=== PATIENT | male | born 1990 | race Caucasian/White ===

== ENCOUNTER → 2016-06-01 | Outpatient (CLI) | payer OTHER ==
[~2016-06-01] MED LIST: EPIN0.3P2 IM
--- NOTE | 2016-06-01 17:58 | Diagnostic Imaging Report ---
Three views of the lumbar spine. INDICATION: Back pain. FINDINGS: The lumbar spine has satisfactory alignment. The vertebral body heights and disc heights are preserved. The SI joints appear symmetric. No significant degenerative changes or osteophyte formation is noted. The paravertebral soft tissues appear unremarkable. IMPRESSION: Unremarkable exam. Dictated by: Dictated on workstation # [id number]
--- NOTE | 2016-06-01 18:07 | Diagnostic Imaging Report ---
Three views of the cervical spine. INDICATION: Neck pain. FINDINGS: There is straightening of the lordotic curvature in the upper cervical spine, likely positional. The vertebral body heights are preserved. Disc heights are also preserved. There is minimal early anterior and posterior osteophyte formation noted at C6/C7 level. The lateral masses of C1 and C2 have normal alignment. The prevertebral soft tissues appear unremarkable. IMPRESSION: Suggestion of minimal early degenerative osteophytes at C6/C7 level. MRI could be considered to evaluate potential effect on the spinal canal. Dictated by: Dictated on workstation # [id number]
== END ==
LOC: RAD 13:22
PROVIDERS: ATTEND Chiropractor
DX: M47.812 Spondylosis without myelopathy or radiculopathy, cervical region (principal); M54.6 Pain in thoracic spine; M54.5 Low back pain
CPT/HCPCS: 72040; 72100

== ENCOUNTER → 2017-08-09 | Outpatient (CLI) | payer OTHER ==
--- NOTE | 2017-08-09 11:21 | Diagnostic Imaging Report ---
PROCEDURE: US Gallbladder. TECHNIQUE: Multiple real-time grayscale images were obtained over the right upper quadrant in various projections. INDICATION: Right upper quadrant pain. COMPARISON: None. FINDINGS: The liver appears unremarkable. There is no focal hepatic mass. The common bile duct is not well seen, however, no gross biliary dilatation is seen. Doppler imaging demonstrates normal hepatopetal flow in the main portal vein. Gallbladder appears unremarkable. The pancreas is not well demonstrated. The right kidney measures 11.9 cm in length and appears normal. There is no ascites or sonographic Palomino's sign. IMPRESSION: No acute abnormality is seen. Limited visualization of common bile duct and pancreas. Dictated by: Dictated on workstation # [id number]
== END ==
LOC: RAD 09:14
PROVIDERS: ATTEND Surgery
DX: R10.11 Right upper quadrant pain (principal)
CPT/HCPCS: 76705

== ENCOUNTER 2017-10-11 05:39 | Outpatient (CLI) | payer OTHER ==
[~2017-10-11] VITALS: Ht 188 cm; Wt 86.2 kg
[2017-10-19] MEDS ORDERED: ACHD5005 PO (09:27)
== END 2017-10-11 16:00 | disposition home or self-care (01) ==
LOC: PREOP 05:39
PROVIDERS: ATTEND Surgery
DX: Z01.818 Encounter for other preprocedural examination (principal)

== ENCOUNTER 2017-10-19 06:21 | Day surgery (SDC) | payer OTHER ==
[~2017-10-19] VITALS: Ht 188 cm; Wt 86.2 kg
[2017-10-19 06:45] VITALS: BP 119/77
[2017-10-19] MEDS ORDERED: MIDAZOLAM 2 MG/2 ML (VERSED) VIAL ONE (06:45)
[2017-10-19] MEDS ORDERED: SEVOFLURANE (ULTANE) 15 ML INHAL SOLN ONE ×6 (06:46→09:29)
[2017-10-19] MEDS ORDERED: ONDANSETRON 4 MG/2 ML (SDV) Z0FRAN ONE (06:46)
[2017-10-19] MEDS ORDERED: ROCURONIUM 10 MG/ML 5 ML SYRINGE IV ONE (06:46)
[2017-10-19] MEDS ORDERED: LIDOCAINE PF 2% 5 ML (XYLOCAINE) VIAL ONE (06:46)
[2017-10-19] MEDS ORDERED: proPOfol 200 MG/20 ML (DIPRIVAN) VIAL IV ONE (06:46)
[2017-10-19] MEDS ORDERED: DEXAMETHASONE 10 MG/ML (DECADRON) 1 ML VIAL ONE (06:46)
[2017-10-19] MEDS ORDERED: metroNIDAZOLE 500MG/100ML IVPB 100 ML IV ONE (07:00)
[2017-10-19] MEDS ORDERED: fentaNYL INJECTION 250 MCG/5 ML AMP ONE (07:00)
[2017-10-19] MEDS ORDERED: CATHETER FLUSH 10 ML SYR IV PRN (07:00)
[2017-10-19] MEDS ORDERED: ceFAZolin 2 GM IV Premixed 50 ML IV ONE (07:00)
[2017-10-19] MEDS: LACTATED RINGERS 1,000 ML IV PRN ×3 (07:00→09:31)
[2017-10-19 07:07] LABS: BASOPHILS % (AUTO) 0 % (0-10); EOSINOPHILS # (AUTO) 0.1 10^3/uL (0.0-0.3); EOSINOPHILS % (AUTO) 3 % (0-10); HEMATOCRIT 47 % (40-54); LYMPHOCYTES # (AUTO) 1.2 X 10^3 (1.0-4.0); LYMPHOCYTES % (AUTO) 26 % (12-44); MEAN CORPUSCULAR HEMOGLOBIN 29 PG (25-34); MEAN CORPUSCULAR HGB CONC 34 G/DL (32-36); MEAN CORPUSCULAR VOLUME 85 FL (80-99); MEAN PLATELET VOLUME 10.8 FL (7.4-10.4); MONOCYTES # (AUTO) 0.7 X 10^3 (0.0-1.0); MONOCYTES % (AUTO) 14 % (0-12); NEUTROPHILS # (AUTO) 2.6 X 10^3 (1.8-7.8); NEUTROPHILS % (AUTO) 57 % (42-75); PLATELET COUNT 192 10^3/uL (130-400); RED BLOOD COUNT 5.52 10^6/uL (4.35-5.85); RED CELL DISTRIBUTION WIDTH 13.5 % (10.0-14.5); WHITE BLOOD COUNT 4.7 10^3/uL (4.3-11.0)
[2017-10-19 07:25] LABS: ALANINE AMINOTRANSFERASE 28 U/L (0-55); ALBUMIN 4.5 GM/DL (3.2-4.5); ALKALINE PHOSPHATASE 61 U/L (40-136); BILIRUBIN,TOTAL 1.2 MG/DL (0.1-1.0); BUN/CREATININE RATIO 13; CALCIUM 9.2 MG/DL (8.5-10.1); CARBON DIOXIDE 24 MMOL/L (21-32); CHLORIDE 107 MMOL/L (98-107); CREATININE SERUM 0.93 MG/DL (0.60-1.30); GFR ESTIMATED > 60; GLUCOSE 92 MG/DL (70-105); POTASSIUM 4.1 MMOL/L (3.6-5.0); SODIUM 140 MMOL/L (135-145); TOTAL PROTEIN 6.8 GM/DL (6.4-8.2)
[2017-10-19] MEDS ORDERED: BUP/EPI 0.5% 1:200,000 (SENSORCAINE) 30 ML VIAL ONE (07:31)
--- NOTE | 2017-10-19 07:58 | Progress Note-Pre Operative ---
Pre-Operative Progress Note H&P Reviewed The H&P was reviewed, patient examined and no changes noted. Date Seen by Provider: Sep 24, 2017 Time Seen by Provider: 11:00 Date H&P Reviewed: Oct 19, 2017 Time H&P Reviewed: 07:58 Pre-Operative Diagnosis: GB Dyskinesia TOMAS CASEY MD Oct 19, 2017 7:58 am
[2017-10-19] MEDS ORDERED: ACHD5005 PO (09:27)
--- NOTE | 2017-10-19 09:27 | Operative Report ---
Operative Report Date of Procedure/Surgery Oct 19, 2017 Surgeon (s) TOMAS CASEY MD Pst Specialist (s): N/A Post-Operative Diagnosis Same Procedure Performed Robotic-assisted cholecystectomy Description of Procedure Anesthesia Type: General Estimated blood loss (mL): 100 mL Specimen(s) collected/removed Gallbladder Description of the Procedure Indication for the procedure: This gentleman presented with severe symptoms due to a combination of reduced ejection fraction of the gallbladder and chronic, acalculous cholecystitis. He was therefore offered cholecystectomy using minimally invasive technique with robotic assistance. Informed consent was obtained after reviewing the operative details and complications of wound infection, bile leak and the potential for persistent symptoms. Description of the procedure: He was placed supine on the operative table and general anesthesia induced. Ancef and Flagyl were administered intravenously as prophylaxis against wound infection. Sequential compression devices were placed around his legs, to minimize the risk of venous thrombosis. Abdomen was prepared and draped in the usual sterile manner. Pneumoperitoneum was established using an incision made through the umbilicus. Intra-abdominal pressure was maintained at 15 mmHg, using carbon dioxide insufflation. A 12 mm trocar was placed and anatomy visualized using the high definition, 3- dimensional laparoscope, associated with da Elina system. Under direct view, I placed an 8 mm trocar over each side of the abdomen, followed by a 5 mm trocar over the left subcostal region. The robotic system was then docked in place. The fundus of the gallbladder was retracted cephalad and the infundibulum grasped with Cadiere forceps. Thickened tissue around Calot's triangle was incised using the hook cautery, delineating the cystic duct and artery. Both were controlled between locking clips. Cholecystomy was then completed using the hook cautery. Bleeding from the gallbladder fossa was controlled using the same device. Subhepatic space was then irrigated with saline and the gallbladder placed in an Endo Catch bag, we removed via the umbilical trocar site. The fascia over this incision was closed using #1 Vicryl. Skin incisions were closed using 4-0 Vicryl, in a subcuticular fashion. 0.5 percent Marcaine with epinephrine was infiltrated along the incisions, both preemptively and at the conclusion of the operation. He tolerated the procedure well, was extubated in the operating room and taken to the recovery room in a stable Findings of the Procedure see op report Allergies and Home Medications Allergies Uncoded Allergies: BEE STING (Allergy, Severe, ANAPHYLACTIC, 07/17/11) Home Medications No Active Prescriptions or Reported Meds Patient Home Medication List Home Medication List Reviewed: Yes TOMAS CASEY MD Oct 19, 2017 9:27 am
--- NOTE | 2017-10-19 09:28 | Discharge Inst-Simple/Standard ---
Discharge Inst-Standard Discharge Medications New, Converted or Re-Newed RX: RX on Chart Patient Instructions/Follow Up Plan of Care/Instructions/FU: Band-Aids off in 48 hours. Incentive spirometry. Follow-up in 3 weeks Activity as Tolerated: Yes Discharge Diet: No Restrictions TOMAS CASEY MD Oct 19, 2017 9:28 am
[2017-10-19] MEDS ORDERED: fentaNYL INJECTION 100 MCG/2 ML AMP IVP PRN (09:45)
[2017-10-19] MEDS ORDERED: MEPERIDINE (DEMEROL) INJ 50 MG/ML IVP PRN (09:45)
[2017-10-19] MEDS ORDERED: ONDANSETRON 4 MG/2 ML (SDV) Z0FRAN IVP PRN (09:45)
[2017-10-19 10:35] VITALS: BP 117/72
[2017-10-19 11:05] VITALS: BP 112/69
[2017-10-19 11:35] VITALS: BP 115/66
[2017-10-19] MEDS ORDERED: HYDROcodone/APAP 5 MG/325 MG (LORTAB) TAB ONE (11:42)
[2017-10-19] MEDS ORDERED: HYDROcodone/APAP 5 MG/325 MG (LORTAB) TAB PO ONE (11:45)
[2017-10-19 12:05] VITALS: BP 118/75
--- NOTE | 2017-10-19 14:26 | Anesthesia-General Post-Op ---
General Patient Condition Mental Status/LOC: Same as Preop Cardiovascular: Satisfactory Nausea/Vomiting: Absent Respiratory: Satisfactory Pain: Controlled Complications: Absent Post Op Complications Complications None Follow Up Care/Instructions Patient Instructions None needed. Anesthesia/Patient Condition Patient Condition Patient is doing well, no complaints, stable vital signs, no apparent adverse anesthesia problems. No complications reported per nursing. OSMAN LANE CRNA Oct 19, 2017 14:25
[2017-10-19 14:30] VITALS: BP 117/66
== END 2017-10-19 14:50 | disposition home or self-care (01) ==
LOC: SDC 06:21
PROVIDERS: ATTEND Surgery
DX: K81.1 Chronic cholecystitis (principal); Z11.2 Encounter for screening for other bacterial diseases
CPT/HCPCS: 36415; 80053; 85025; 87081; 94664